=== PATIENT | male | born 1960 | race Caucasian/White ===

== ENCOUNTER 2020-07-19 22:06 | Inpatient (IN) | payer BC ==
[~2020-07-19] VITALS: Ht 185.4 cm; Wt 82.1 kg
[2020-07-19] MEDS ORDERED: MIDAZOLAM 1 MG/ML, 2ML ONE ×3 (22:08→23:15)
--- NOTE | 2020-07-19 22:08 | NUR ---
Amaris Gerardo () [facility]
[2020-07-19] MEDS ORDERED: SODIUM CHLORIDE 0.9% 1,000 ML IV ONE (22:30)
[2020-07-19] MEDS ORDERED: MIDAZOLAM 1 MG/ML, 2ML IVPush ONE ×2 (22:30→23:30)
[2020-07-19] MEDS ORDERED: MIDAZOLAM HCL 50 MG in SODIUM CHLORIDE 0.9% 40 ML IV PRN (22:30)
[2020-07-19] MEDS ORDERED: SODIUM CHLORIDE FLUSH 10ML SYR IVF ONE (22:30)
--- NOTE | 2020-07-19 22:30 | NUR ---
ADDITIONAL IV STARTED, PATIENT TOLERATED WELL. PATIENT MAY REQUIRE INCREASE IN SEDATION DRIP, WILL CONTINUE TO MONITOR NEED.
[2020-07-19 22:55] LABS: BASOPHILS % (AUTO) 1 % (0-1); EOSINOPHILS % (AUTO) 0 % (1-7); LYMPHOCYTES % (AUTO) 6 % (22-44); MEAN CORPUSCULAR HEMOGLOBIN 29.8 pg (27.5-34.5); MEAN CORPUSCULAR HGB CONC 33.3 g/dL (33.2-36.2); MEAN PLATELET VOLUME 7.8 fL (7.4-10.4); MONOCYTES % (AUTO) 5 % (2-9); NEUTROPHILS % (AUTO) 89 % (42-75); PLATELET COUNT 200 x10^3/uL (130-400); RED BLOOD COUNT 5.12 x10^6/uL (4.38-5.82); RED CELL DISTRIBUTION WIDTH 14.2 % (9.4-14.8)
[2020-07-19 22:57] LABS: MD NO
[2020-07-19] MEDS ORDERED: PLEASE ENTER HEIGHT AND WEIGHT MC SCH (23:00)
[2020-07-19] MEDS ORDERED: VANCOMYCIN PER PHARMACY MC PRN (23:00)
[2020-07-19] MEDS ORDERED: PLEASE ENTER ALLERGIES MC SCH (23:00)
--- NOTE | 2020-07-19 23:00 | NUR ---
PATIENT TOLERATING INTERVENTIONS WELL. NO NOTED ACUTE DISTRESS, VSS. WILL CONTINUE TO MONITOR.
[2020-07-19 23:05] LABS: ALBUMIN 3.6 g/dL (3.4-5.0); ANION GAP 6 mmol/L (5-15); CALCIUM 7.8 mg/dL (8.5-10.1); CHLORIDE 111 mmol/L (98-107); CREATININE 1.15 mg/dL (0.7-1.3)
--- NOTE | 2020-07-19 23:30 | NUR ---
PATIENT'S LUMBAR PUNCTURE WENT WELL. PATIENT TOLERATED WELL. SAMPLES SENT TO LAB.
[2020-07-20] MEDS ORDERED: ACETAMINOPHEN 650 MG SUPP PR ONE
[2020-07-20 00:04] LABS: GLUCOSE, CSF 85 mg/dL (40-80); TOTAL PROTEIN,CSF 50 mg/dL (15-45)
[2020-07-20] MEDS ORDERED: ACETAMINOPHEN 325 MG SUPP ONE (00:09)
--- NOTE | 2020-07-20 00:18 | NUR ---
SENT PHARMACY REQUEST FOR PATIENT'S VANCOMYCIN. PATINET TOLERATING INTERVENTIONS WELL. RECTAL SUPPOSITORY GIVEN R/T 100.5 RECTAL TEMP. TOLERATED WELL. VITAL SIGNS STABLE. PATIETN TOLERATING VERSED 8MG/HR DRIP RATE WELL. NO ADDITIONAL NEEDS NOTED AT THIS TIME. WILL CONTINUE TO MONITOR.
[2020-07-20] MEDS ORDERED: VANCOMYCIN 2,000 MG in SODIUM CHLORIDE 0.9% 500 ML IV ONE (00:30)
--- NOTE | 2020-07-20 00:42 | NUR ---
PATIENT SUCTIONED BY RT. PATIENT RESPONSIVE. PATIENT MAY REQUIRE INCREASE IN SEDATION MEDICATION. WILL ALLOW FOR PATIENT TO CALM FROM INTERVENTION PRIOR TO INCREASING DRIP RATE. PATIENT HAS BEEN TOLERATING 8MG/HR WELL.
--- NOTE | 2020-07-20 00:49 | NUR ---
MD ANTHONY/MD IYER AT BEDSIDE FOR PATIENT EVALUATION
[2020-07-20] MEDS ORDERED: VANCOMYCIN PER PHARMACY MC PRN (01:00)
[2020-07-20] MEDS ORDERED: LIDOCAINE-MPF 1%, 2ML ENDO PRN (01:00)
[2020-07-20] MEDS ORDERED: PHARMACY MAY ADJ FOR RENAL FX MC SCH (01:00)
[2020-07-20] MEDS ORDERED: FAMOTIDINE 20 MG/2 ML IV SCH (01:00)
[2020-07-20] MEDS ORDERED: SODIUM CHLORIDE 0.9% 1,000 ML IV SCH (01:00)
[2020-07-20] MEDS ORDERED: FENTANYL PF 100 MCG/2ML IVPush PRN (01:00)
[2020-07-20] MEDS ORDERED: ACYCLOVIR 1,000 MG in SODIUM CHLORIDE 0.9% 250 ML IV SCH (01:00)
[2020-07-20] MEDS ORDERED: MIDAZOLAM HCL 50 MG in SODIUM CHLORIDE 0.9% 40 ML IV PRN (01:00)
[2020-07-20] MEDS ORDERED: PROPOFOL 100 ML IV ONE (01:24)
--- NOTE | 2020-07-20 01:34 | NUR ---
PATIENT TAKEN TO ICU WITH RT. PATIENT TOLERATED POORLY. EVIDENCE NOTED THAT THE PATIENT REQUIRES ADDITIONAL SEDATION. BEDSIDE REPORT FINISHED, NO FURTHER QUESTIONS NOTED.
[2020-07-20] MEDS: HEPARIN 5,000 UNITS/ML, 1ML SQ SCH ×3 (02:13→16:52)
[2020-07-20] MEDS: PIPERACILLIN/TAZO/PMX 3.375GM 50 ML IV SCH ×4 (02:13→21:14)
[2020-07-20] MEDS ORDERED: PROPOFOL 100 ML IV PRN (02:30)
[2020-07-20 02:55] LABS: MICROSCOPIC INDICATED
[2020-07-20] MEDS: ACYCLOVIR 850 MG in SODIUM CHLORIDE 0.9% 250 ML IV SCH ×3 (03:17→18:06)
[2020-07-20] MEDS ORDERED: BUSP7.5T5 PO (03:24)
[2020-07-20] MEDS ORDERED: ASPI81TA45 PO (03:24)
[2020-07-20] MEDS ORDERED: TAMS-11 PO (03:25)
[2020-07-20] MEDS ORDERED: SERT-237 PO (03:26)
[2020-07-20] MEDS: BUSPIRONE 5 MG TABLET PO SCH ×2 (08:22→21:13)
[2020-07-20] MEDS: SERTRALINE 50MG TABLET PO SCH (08:22)
[2020-07-20] MEDS: LEVETIRACETAM 1,000 MG in SODIUM CHLORIDE 0.9% 100 ML IV SCH ×2 (08:22→20:51)
[2020-07-20 08:44] LABS: BASOPHILS % (AUTO) 0 % (0-1); EOSINOPHILS % (AUTO) 1 % (1-7); LYMPHOCYTES % (AUTO) 11 % (22-44); MD NO; MEAN CORPUSCULAR HEMOGLOBIN 29.9 pg (27.5-34.5); MEAN CORPUSCULAR HGB CONC 32.9 g/dL (33.2-36.2); MEAN PLATELET VOLUME 7.7 fL (7.4-10.4); MONOCYTES % (AUTO) 7 % (2-9); NEUTROPHILS % (AUTO) 81 % (42-75); PLATELET COUNT 173 x10^3/uL (130-400); RED BLOOD COUNT 4.96 x10^6/uL (4.38-5.82); RED CELL DISTRIBUTION WIDTH 14.2 % (9.4-14.8)
[2020-07-20 08:57] LABS: ALBUMIN 3.4 g/dL (3.4-5.0); ANION GAP 6 mmol/L (5-15); CALCIUM 7.7 mg/dL (8.5-10.1); CHLORIDE 114 mmol/L (98-107)
[2020-07-20] MEDS ORDERED: ZIPRASIDONE 20 MG INJ IM PRN (09:00)
[2020-07-20 09:01] LABS: ALANINE AMINOTRANSFERASE 27 U/L (12-78); ALKALINE PHOSPHATASE 68 U/L (45-117); BILIRUBIN,TOTAL 0.4 mg/dL (0.2-1.0); CREATININE 1.33 mg/dL (0.7-1.3); TOTAL PROTEIN 6.3 g/dL (6.4-8.2)
[2020-07-20] MEDS ORDERED: POTASSIUM CHLORIDE 10% 40 MEQ/30 ML UDC PO ONE (10:00)
[2020-07-20] MEDS ORDERED: LORazepam 2 MG/ML, 1ML ONE (13:23)
[2020-07-20] MEDS ORDERED: LORazepam 2 MG/ML, 1ML IVPush ONE (13:45)
[2020-07-20] MEDS: VANCOMYCIN 1,600 MG in SODIUM CHLORIDE 0.9% 250 ML IV SCH (14:18)
[2020-07-20] MEDS: DEXMEDETOMIDINE 200 MCG in SODIUM CHLORIDE 0.9% 48 ML IV PRN (14:39)
[2020-07-21] MEDS: DEXMEDETOMIDINE 200 MCG in SODIUM CHLORIDE 0.9% 48 ML IV PRN ×2 (00:16→09:11)
[2020-07-21] MEDS: HEPARIN 5,000 UNITS/ML, 1ML SQ SCH ×3 (02:25→17:46)
[2020-07-21] MEDS: PIPERACILLIN/TAZO/PMX 3.375GM 50 ML IV SCH ×2 (02:26→08:52)
[2020-07-21] MEDS: ACYCLOVIR 850 MG in SODIUM CHLORIDE 0.9% 250 ML IV SCH (04:25)
[2020-07-21 04:58] LABS: ANION GAP 7 mmol/L (5-15); CALCIUM 7.9 mg/dL (8.5-10.1); CHLORIDE 115 mmol/L (98-107); CREATININE 0.98 mg/dL (0.7-1.3)
[2020-07-21 07:09] LABS: BASOPHILS % (AUTO) 1 % (0-1); EOSINOPHILS % (AUTO) 4 % (1-7); LYMPHOCYTES % (AUTO) 16 % (22-44); MD NO; MEAN CORPUSCULAR HEMOGLOBIN 29.7 pg (27.5-34.5); MEAN CORPUSCULAR HGB CONC 32.9 g/dL (33.2-36.2); MEAN PLATELET VOLUME 7.9 fL (7.4-10.4); MONOCYTES % (AUTO) 7 % (2-9); NEUTROPHILS % (AUTO) 73 % (42-75); PLATELET COUNT 164 x10^3/uL (130-400); RED BLOOD COUNT 4.58 x10^6/uL (4.38-5.82); RED CELL DISTRIBUTION WIDTH 13.9 % (9.4-14.8)
[2020-07-21] MEDS: LEVETIRACETAM 1,000 MG in SODIUM CHLORIDE 0.9% 100 ML IV SCH ×2 (07:41→19:30)
[2020-07-21] MEDS: VANCOMYCIN 1,600 MG in SODIUM CHLORIDE 0.9% 250 ML IV SCH (09:10)
[2020-07-21] MEDS: SERTRALINE 50MG TABLET PO SCH (09:42)
[2020-07-21] MEDS: BUSPIRONE 5 MG TABLET PO SCH ×2 (09:42→21:03)
[2020-07-21] MEDS ORDERED: VANCOMYCIN PER PHARMACY MC PRN (13:00)
[2020-07-21] MEDS ORDERED: PHARMACOKINETIC MONITORING MC PRN (14:00)
[2020-07-21] MEDS ORDERED: VANCOMYCIN 2,200 MG in SODIUM CHLORIDE 0.9% 500 ML IV ONE (14:00)
[2020-07-21 20:24] VITALS: BP 136/80
[2020-07-22] MEDS: HEPARIN 5,000 UNITS/ML, 1ML SQ SCH ×3 (01:21→16:04)
[2020-07-22 01:25] VITALS: BP 134/78
[2020-07-22 01:27] VITALS: BP 125/76
[2020-07-22] MEDS ORDERED: VANCOMYCIN 1,600 MG in SODIUM CHLORIDE 0.9% 250 ML IV SCH (02:00)
[2020-07-22 06:00] LABS: BASOPHILS % (AUTO) 1 % (0-1); EOSINOPHILS % (AUTO) 3 % (1-7); LYMPHOCYTES % (AUTO) 18 % (22-44); MEAN CORPUSCULAR HEMOGLOBIN 29.9 pg (27.5-34.5); MEAN CORPUSCULAR HGB CONC 33.7 g/dL (33.2-36.2); MEAN PLATELET VOLUME 8.2 fL (7.4-10.4); MONOCYTES % (AUTO) 7 % (2-9); NEUTROPHILS % (AUTO) 71 % (42-75); PLATELET COUNT 175 x10^3/uL (130-400); RED BLOOD COUNT 4.51 x10^6/uL (4.38-5.82); RED CELL DISTRIBUTION WIDTH 13.8 % (9.4-14.8)
[2020-07-22 06:10] LABS: ANION GAP 8 mmol/L (5-15); CALCIUM 8.1 mg/dL (8.5-10.1); CHLORIDE 109 mmol/L (98-107); CREATININE 0.84 mg/dL (0.7-1.3)
[2020-07-22 06:11] LABS: MD NO
[2020-07-22] MEDS ORDERED: POTASSIUM CHLORIDE 10% 40 MEQ/30 ML UDC PO ONE (07:30)
[2020-07-22 07:39] VITALS: BP 148/82
[2020-07-22] MEDS: LEVETIRACETAM 1,000 MG in SODIUM CHLORIDE 0.9% 100 ML IV SCH ×2 (07:54→20:07)
[2020-07-22] MEDS: BUSPIRONE 5 MG TABLET PO SCH ×2 (07:54→20:07)
[2020-07-22] MEDS: SERTRALINE 50MG TABLET PO SCH (07:54)
[2020-07-22] MEDS: VANCOMYCIN 1,600 MG in SODIUM CHLORIDE 0.9% 250 ML IV SCH ×2 (09:50→20:31)
[2020-07-22] MEDS ORDERED: POTASSIUM CHLORIDE 10% 20 MEQ/15 ML UDC PO SCH (15:30)
[2020-07-22] MEDS ORDERED: ACETAMINOPHEN 325 MG TABLET ONE (16:59)
[2020-07-22] MEDS: ACETAMINOPHEN 325 MG TABLET PO PRN ×2 (17:00→23:27)
[2020-07-22 19:35] VITALS: BP 143/75
[2020-07-23 01:42] VITALS: BP 132/82
[2020-07-23] MEDS: HEPARIN 5,000 UNITS/ML, 1ML SQ SCH ×2 (02:04→09:14)
[2020-07-23 06:44] LABS: BASOPHILS % (AUTO) 1 % (0-1); EOSINOPHILS % (AUTO) 4 % (1-7); LYMPHOCYTES % (AUTO) 22 % (22-44); MEAN CORPUSCULAR HEMOGLOBIN 29.7 pg (27.5-34.5); MEAN CORPUSCULAR HGB CONC 33.7 g/dL (33.2-36.2); MEAN PLATELET VOLUME 7.9 fL (7.4-10.4); MONOCYTES % (AUTO) 8 % (2-9); NEUTROPHILS % (AUTO) 66 % (42-75); PLATELET COUNT 185 x10^3/uL (130-400); RED BLOOD COUNT 4.65 x10^6/uL (4.38-5.82); RED CELL DISTRIBUTION WIDTH 13.6 % (9.4-14.8)
[2020-07-23 06:48] LABS: MD NO
[2020-07-23 06:57] VITALS: BP 128/84
[2020-07-23 06:59] LABS: ANION GAP 7 mmol/L (5-15); CALCIUM 8.4 mg/dL (8.5-10.1); CHLORIDE 110 mmol/L (98-107); CREATININE 0.82 mg/dL (0.7-1.3)
[2020-07-23] MEDS ORDERED: POTASSIUM CHLORIDE 10% 40 MEQ/30 ML UDC PO ONE (07:30)
[2020-07-23] MEDS: BUSPIRONE 5 MG TABLET PO SCH (08:50)
[2020-07-23] MEDS: ACETAMINOPHEN 325 MG TABLET PO PRN ×2 (08:50→14:19)
[2020-07-23] MEDS: SERTRALINE 50MG TABLET PO SCH (08:50)
[2020-07-23] MEDS: LEVETIRACETAM 1,000 MG in SODIUM CHLORIDE 0.9% 100 ML IV SCH (08:50)
[2020-07-23] MEDS ORDERED: POTASSIUM CHLORIDE 20 MEQ TAB.ER.PRT PO SCH (09:00)
[2020-07-23] MEDS: VANCOMYCIN 1,600 MG in SODIUM CHLORIDE 0.9% 250 ML IV SCH (09:14)
[2020-07-23 13:24] VITALS: BP 152/90
[2020-07-23] MEDS ORDERED: LEVE500T53 PO (16:20)
[2020-07-23] MEDS ORDERED: POTA20TA14 PO (16:30)
== END 2020-07-23 17:34 | disposition home or self-care (01) | DRG 871 ==
LOC: ED 07-20 00:55 → EDIP 07-20 01:08 → CSU 07-20 01:16 → 4WST 07-21 14:35
PROVIDERS: ADMIT Family Medicine; ATTEND Internal Medicine
PROC: 009U3ZX Drainage of Spinal Canal, Percutaneous Approach, Diagnostic (ICD-10-PCS; principal; 2020-07-20)
PROC: 0T9B70Z Drainage of Bladder with Drainage Device, Via Natural or Artificial Opening (ICD-10-PCS; 2020-07-20)
PROC: 5A1935Z Respiratory Ventilation, Less than 24 Consecutive Hours (ICD-10-PCS; 2020-07-20)
PROC: 0BH17EZ Insertion of Endotracheal Airway into Trachea, Via Natural or Artificial Opening (ICD-10-PCS; 2020-07-20)
DX: A41.9 Sepsis, unspecified organism (principal); J96.01 Acute respiratory failure with hypoxia; G93.41 Metabolic encephalopathy; J98.11 Atelectasis; Z99.11 Dependence on respirator [ventilator] status; E87.2 Acidosis; N17.9 Acute kidney failure, unspecified; Z20.822 Contact with and (suspected) exposure to COVID-19; G40.401 Other generalized epilepsy and epileptic syndromes, not intractable, with status epilepticus; I35.0 Nonrheumatic aortic (valve) stenosis; J43.9 Emphysema, unspecified; M48.02 Spinal stenosis, cervical region; F12.10 Cannabis abuse, uncomplicated; E83.51 Hypocalcemia; F31.9 Bipolar disorder, unspecified; E87.5 Hyperkalemia; E86.0 Dehydration; Z88.5 Allergy status to narcotic agent; Z79.899 Other long term (current) drug therapy; Z87.891 Personal history of nicotine dependence; Z87.19 Personal history of other diseases of the digestive system; Z87.828 Personal history of other (healed) physical injury and trauma
CPT/HCPCS: 36415; 36600; 70551; 71045; 80048; 80053; 80202; 81001; 82040; 82140; 82330; 82803; 82945; 83605; 83735; 84157; 84443; 84478; 85025; 87040; 87070; 87081; 87086; 87205; 87252; 87529; 89051; 93005; 93306; 93880; 94002; 94003; 95819; G0378; J0133; J1644; J1953; J2250; J2543; J2704; J3370; J3486; J2060; J7030; J7040; J7050